=== PATIENT | female | born 1995 | race Caucasian/White ===

== ENCOUNTER 2018-08-26 10:24 | Inpatient (IN) | payer OTHER ==
[2018-08-26 11:24] VITALS: BMI 28.3
[2018-08-26] MEDS ORDERED: Ketorolac Tromethamine 30 MG/ML VIAL ONE ×2 (11:30→12:43)
[2018-08-26] MEDS ORDERED: Bicitra 30 ML UDCUP ONE (11:42)
[2018-08-26] MEDS ORDERED: CEFAZOLIN 2 GM/50 ML BAG ONE (11:42)
[2018-08-26] MEDS ORDERED: Ondansetron PF 4 MG/2 ML Vial IVP PRN ×3 (11:47→16:09)
[2018-08-26 11:59] LABS: Hemoglobin 12.9 g/dL (12.0-16.0); Mean Corpuscular HGB CONC 34.8 g/dL (32.0-36.0); Mean Corpuscular Hemoglobin 33.7 pg (27.0-31.0); Mean Corpuscular Volume 96.6 fL (78.0-98.0); Mean Platelet Volume 7.4 fL (7.4-10.4); Platelet Count 303 thou/uL (130-400); RBC Distribution Width 12.6 % (11.5-14.5); Red Blood Cell (RBC) Count 3.84 mill/uL (4.20-5.40); White Blood Cell (WBC) Count 9.1 thou/uL (4.8-10.8)
[2018-08-26] MEDS ORDERED: Lactated Ringer's 1,000 ML IV SCH ×2 (12:00→16:09)
[2018-08-26] MEDS ORDERED: Bicitra 30 ML UDCUP PO SCH (12:00)
[2018-08-26] MEDS ORDERED: CEFAZOLIN/Water 2 GM/20 ML SYRINGE SLOW IVP SCH (12:00)
[2018-08-26] MEDS ORDERED: Morphine PF 1 MG/ML SYR ONE (12:03)
[2018-08-26] MEDS ORDERED: Lidocaine 2% PF 5 ML VIAL ONE (12:04)
[2018-08-26] MEDS ORDERED: Oxytocin 10 UNITS/ML VIAL ONE (12:04)
[2018-08-26 12:34] LABS: HBSAg Index 0.22 S/CO (0-0.99); Hep B Surf Ag Non-Reactive S/CO (NonReactive)
[2018-08-26 12:36] LABS: Syphilis Antibody Nonreactive (Nonreactive); Syphilis Antibody Index 0.03 S/CO (<1.00 Non-Reactive)
[2018-08-26] MEDS ORDERED: HYDROmorphone 2 MG/ML VIAL SLOW IVP PRN (12:36)
[2018-08-26] MEDS ORDERED: Ondansetron HCl/PF 4 MG/2 ML Vial IVP PRN (12:36)
[2018-08-26] MEDS ORDERED: Meperidine HCl/PF 25 MG/ML VIAL SLOW IVP PRN (12:36)
[2018-08-26] MEDS ORDERED: L&D-Morphine 4 MG/ML VIAL SLOW IVP PRN (12:36)
[2018-08-26] MEDS ORDERED: Ketorolac Tromethamine 30 MG/ML VIAL IVP PRN (12:37)
[2018-08-26] MEDS ORDERED: Eucerin (Mineral Oil/Petrolatum,White) 30 gm Jar TOP PRN (12:37)
[2018-08-26] MEDS ORDERED: diphenhydrAMINE 50 MG/ML VIAL IVP PRN (12:37)
[2018-08-26] MEDS ORDERED: Naloxone HCl 0.4 mg/ml Vial IV PRN (12:37)
[2018-08-26] MEDS ORDERED: Promethazine HCl 25 MG SUPP PR PRN (12:37)
[2018-08-26] MEDS ORDERED: Promethazine HCl 25 MG/ML VIAL IM PRN (12:37)
[2018-08-26] MEDS ORDERED: Naloxone HCl 0.4 mg/ml Vial IVP PRN ×2 (12:37)
[2018-08-26] MEDS ORDERED: Ketorolac Tromethamine 30 MG/ML VIAL IVP SCH (12:45)
[2018-08-26] MEDS ORDERED: Communication Order-Pharmacy FS SCH (12:45)
[2018-08-26] MEDS ORDERED: Fentanyl 100 MCG/2 ML VIAL ONE (12:48)
[2018-08-26] MEDS ORDERED: Lanolin Ointment 7 GM TUBE TOP PRN (16:09)
[2018-08-26] MEDS ORDERED: diphenhydrAMINE 25 MG CAP PO PRN (16:09)
[2018-08-26] MEDS ORDERED: Meperidine HCl/PF 25 MG/ML VIAL IM PRN (16:09)
[2018-08-26] MEDS ORDERED: Bisacodyl 10 MG SUPP PR PRN (16:09)
[2018-08-26] MEDS ORDERED: NS / Oxytocin 40 units/1000ml 1,000 ML IV SCH (16:09)
[2018-08-26] MEDS ORDERED: HYDROcodone/Acetaminophen 5/325 mg Tablet PO PRN (16:09)
[2018-08-26] MEDS: Ibuprofen 800 MG TAB PO SCH (23:32)
[2018-08-26] MEDS: Ferrous Sulfate 325 MG TAB PO SCH (23:32)
[2018-08-26] MEDS: Docusate Calcium (SURFAK) 240 MG CAP PO SCH (23:32)
[2018-08-27 05:38] LABS: Hemoglobin 11.6 g/dL (12.0-16.0); Mean Corpuscular HGB CONC 34.6 g/dL (32.0-36.0); Mean Corpuscular Hemoglobin 33.8 pg (27.0-31.0); Mean Corpuscular Volume 97.7 fL (78.0-98.0); Mean Platelet Volume 7.2 fL (7.4-10.4); Platelet Count 266 thou/uL (130-400); RBC Distribution Width 12.6 % (11.5-14.5); Red Blood Cell (RBC) Count 3.44 mill/uL (4.20-5.40); White Blood Cell (WBC) Count 8.6 thou/uL (4.8-10.8)
[2018-08-27] MEDS: Simethicone Chewable 80 MG TAB PO PRN ×3 (07:05→21:01)
[2018-08-27] MEDS: HYDROcodone/Acetaminophen 5/325 mg Tablet PO PRN ×2 (07:05→17:48)
[2018-08-27] MEDS: Ibuprofen 800 MG TAB PO SCH ×4 (07:08→20:54)
--- NOTE | 2018-08-27 07:46 | OP ---
DATE OF PROCEDURE: 08/26/2018 PREOPERATIVE DIAGNOSES: 1. Term . 2. Recent/active HSV-2 outbreak. POSTOPERATIVE DIAGNOSES: 1. Term . 2. Recent/active HSV-2 outbreak. PROCEDURE PERFORMED: Primary low cervical transverse section. SURGEON: Bubba Rey MD CAMOUFLAGE ASSEMBLER: Malika Larson MD. ANESTHESIA: Spinal. 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 She also lives more than an [place] away from [place], and was noted to be 4 cm dilated in the office a day prior to admission. 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 At that time it was felt since she was only 2 cm that if she could make it to 40 weeks, her HSV would be adequately suppressed: however, with the cervical change, she did not want to take a chance of vertical transmission to the infant. DESCRIPTION OF PROCEDURE: After informed consent was obtained from the patient , she was taken to the operating room and spinal anesthesia was administered. She was prepped and draped in usual sterile fashion. A Pfannenstiel incision was created with a #10 scalpel blade and carried down through to the fascia. The fascia was nicked in the midline. The fascial incision was extended transversely with Chambers scissors. The superior fascial segments were grasped with Sydnie and elevated and the underlying rectus muscles were dissected free; first bluntly and then sharply. This was repeated with the inferior fascial segments. The rectus muscles were divided in the midline with blunt dissection. The peritoneum was entered bluntly. The bladder blade was inserted. The uterus was entered in a low-transverse fashion with a clean #10 scalpel blade. The hysterotomy was extended superolaterally with blunt dissection. Clear amniotic fluid was encountered. A vertex was delivered onto the operative field. No nuchal cord was encountered. The remainder of the delivered uneventfully and atraumatically. The nares and oropharynx were bulb suctioned. After 30 seconds, the cord was clamped x2 and a vigorous female infant handed to the staff in attendance. The cord blood was obtained. The placenta was manually extracted. The uterus was exteriorized and freed of clots and debris with a dry lap. The uterus was repaired with a running locking suture of 0 Vicryl in a single full-thickness layer, followed by a series of interrupted [id number] sutures 0 Vicryl along the incision line for hemostasis, which was observed. The abdomen was copiously irrigated with saline. Seprafilm was applied to the repaired uterine incision and the anterior uterine fundus. The uterus was returned to the abdomen and the hemostasis was again observed. The peritoneum was repaired with a running suture of 3-0 Vicryl. The fascia was repaired with a running suture of 0 PDS. Three interrupted sutures of 3-0 Vicryl were placed subdermally to reapproximate the skin, which was closed with skin soniya. Sponge and instrument counts were correct x4. She tolerated the procedure well without any acute complications. She was taken to recovery room in stable condition and the infant to the nursery in stable condition. FINDINGS: Viable female , Apgars of 9 and 9 at 1 and 5 minutes respectively. COMPLICATIONS: None. ESTIMATED BLOOD LOSS: 600 mL. QBL: Pending. Job ID: [id number] MTDD
[2018-08-27] MEDS: Docusate Calcium (SURFAK) 240 MG CAP PO SCH ×2 (09:30→20:54)
[2018-08-27] MEDS: Prenatal Vitamin 1 TAB PO SCH (09:30)
[2018-08-27] MEDS: Ferrous Sulfate 325 MG TAB PO SCH ×2 (09:31→20:35)
--- NOTE | 2018-08-28 01:40 | PDOC.PP ---
Post Progress Note Post Day #: POD#2 Subjective: resting. C/o "gas" PO intake tolerated: yes Flatus: no Ambulation: yes Vital Signs (12 hours) Temp Pulse Resp BP BP Pulse Ox 08/27/18 20:50 97 08/27/18 20:34 98.6 F 86 20 122/71 97 08/27/18 17:15 98.4 F 83 16 102/56 L 95 Weight Weight 72.575 kg - Physical Examination General: NAD Respiratory: non-labored breathing Abdominal: no distention Skin: CS incision dry & intact Neurological: no gross focal deficits Psychiatric: normal affect Result Diagrams: 08/27/18 05:13 Additional Labs: Post Labs Blood Type O NEGATIVE 08/26/18 11:35 Hep Bs Antigen Non-Reactive S/CO (NonReactive) 08/26/18 11:35 - Assessment/Plan Ambulate Advance diet with + flatus Anticipate home 08/29
[2018-08-28] MEDS: Ibuprofen 800 MG TAB PO SCH ×3 (05:18→21:15)
[2018-08-28] MEDS: Ferrous Sulfate 325 MG TAB PO SCH ×2 (08:15→21:14)
[2018-08-28] MEDS: Prenatal Vitamin 1 TAB PO SCH (08:24)
[2018-08-28] MEDS: Docusate Calcium (SURFAK) 240 MG CAP PO SCH ×2 (08:25→21:15)
[2018-08-28] MEDS: HYDROcodone/Acetaminophen 5/325 mg Tablet PO PRN ×3 (10:58→23:36)
[2018-08-28] MEDS: Simethicone Chewable 80 MG TAB PO PRN ×2 (18:47→21:15)
--- NOTE | 2018-08-29 00:44 | PDOC.PP ---
Post Progress Note Post Day #: 3 Subjective: Patient doing well. No significant overnight events. Patient states she is feeling well. Minimal bleeding, less than that of a period. PO intake tolerated: yes Flatus: yes Ambulation: yes Vital Signs (12 hours) Temp Pulse Resp BP BP Pulse Ox 08/28/18 20:00 98.6 F 91 16 110/74 99 08/28/18 17:44 98.2 F 82 16 105/66 Weight Weight 72.575 kg - Physical Examination General: NAD Cardiovascular: no m/r/g, RRR Respiratory: clear to auscultation bilaterally, non-labored breathing Abdominal: + bowel sounds, lochia (less than period), no distention, appropriately TTP Fundus firm & at: below umbilicus Extremities: negative homans (B) Skin: CS incision dry & intact, no rash Neurological: no gross focal deficits Psychiatric: A&Ox3, normal affect Result Diagrams: 08/27/18 05:13 Additional Labs: Post Labs Blood Type O NEGATIVE 08/26/18 11:35 Hep Bs Antigen Non-Reactive S/CO (NonReactive) 08/26/18 11:35 (1) Status post primary low transverse section Code(s): Z98.891 - HISTORY OF UTERINE SCAR FROM PREVIOUS SURGERY Status: Acute (2) HSV-2 infection complicating Code(s): O98.519 - OTHER VIRAL DISEASES COMPLICATING , UNSP TRIMESTER; B00.9 - HERPESVIRAL INFECTION, UNSPECIFIED Status: Acute - Assessment/Plan s/p pLTCS for HSV-2 outbreak in [facility] - Routine PP care - Uncomplicated - Follow up at [facility] in 2 weeks - Contraception: patient desires BTL - Pain medication PRN - Encourage ambulation - Incision clean, dry, intact HSV-2 outbreak - Continue antiviral medication Dispo: Stable. Plan for d/c home today. <Juliet Lynch - Last Filed: 08/29/18 00:54> Vital Signs (12 hours) Temp Pulse Resp BP BP Pulse Ox 08/28/18 20:00 98.6 F 91 16 110/74 99 08/28/18 17:44 98.2 F 82 16 105/66 Weight Weight 160 lb Result Diagrams: 08/27/18 05:13 Additional Labs: Post Labs Blood Type O NEGATIVE 08/26/18 11:35 Hep Bs Antigen Non-Reactive S/CO (NonReactive) 08/26/18 11:35 - Assessment/Plan Cleared for DC to home. F/U with [facility] for wound check. No evidence postop issues. <Tj Sheridan - Last Filed: 08/29/18 01:08>
[2018-08-29] MEDS: Ibuprofen 800 MG TAB PO SCH ×2 (06:18→08:49)
[2018-08-29 07:40] VITALS: BP 116/76; TEMP 98.3
[2018-08-29] MEDS: Docusate Calcium (SURFAK) 240 MG CAP PO SCH (08:48)
[2018-08-29] MEDS: Prenatal Vitamin 1 TAB PO SCH (08:48)
[2018-08-29] MEDS: HYDROcodone/Acetaminophen 5/325 mg Tablet PO PRN (08:49)
[2018-08-29] MEDS: Ferrous Sulfate 325 MG TAB PO SCH (11:09)
== END 2018-08-29 12:30 | disposition home or self-care (01) | DRG 788 ==
LOC: L&D 10:24 → 3SW 15:27
PROVIDERS: ADMIT Family Medicine; ATTEND Family Medicine
PROC: 10D00Z1 Extraction of Products of Conception, Low, Open Approach (ICD-10-PCS; principal; 2018-08-26)
PROC: 3E0334Z Introduction of Serum, Toxoid and Vaccine into Peripheral Vein, Percutaneous Approach (ICD-10-PCS; 2018-08-26)
PROC: 10907ZC Drainage of Amniotic Fluid, Therapeutic from Products of Conception, Via Natural or Artificial Opening (ICD-10-PCS; 2018-08-26)
DX: O98.52 Other viral diseases complicating childbirth (principal); B00.9 Herpesviral infection, unspecified; Z3A.38 38 weeks gestation of pregnancy; Z37.0 Single live birth
CPT/HCPCS: 36415; 51702; 85027; 85461; 86780; 86850; 86870; 86900; 86901; 87340; 90384; 96372; J1885; J2001; J2274; J2590; J3010